=== PATIENT | male | born 1980 | race Caucasian/White ===

== ENCOUNTER 2017-07-08 12:25 | Emergency (ER) | payer SELFPAY ==
[2017-07-08] MEDS ORDERED: Lidocaine 1% 20 ML MDV ONE (12:58)
[2017-07-08] MEDS ORDERED: cefTRIAXone\\ROCEPHIN 250 MG VIAL ONE (12:58)
[2017-07-08] MEDS ORDERED: Azithromycin 250 MG TAB ONE (12:58)
[2017-07-09 22:47] LABS: Chlamydia by PCR Not Detected (NotDetected); GC by PCR DETECTED (NotDetected)
== END 2017-07-08 13:39 | disposition home or self-care (01) ==
LOC: MADERS 12:25
DX: A64 Unspecified sexually transmitted disease (principal)
CPT/HCPCS: 87491; 87591; 96372; J0696; J2001